=== PATIENT | female | born 1970 | race Caucasian/White ===

== ENCOUNTER 2019-07-07 11:17 | Day surgery (SDC) | payer OTHER ==
[2019-07-06 17:04] VITALS: BMI 22.2
[2019-07-07] MEDS ORDERED: PROPOFOL 20 ML ONE ×3 (12:47)
[2019-07-07 15:21] VITALS: TEMP 97.5
[2019-07-07 15:42] VITALS: BP 108/62; PULSE 71
== END 2019-07-07 14:45 | disposition home or self-care (01) ==
LOC: FASU-ENDO 11:17
PROVIDERS: ATTEND Internal Medicine Gastroenterology
PROC: 0DJD8ZZ Inspection of Lower Intestinal Tract, Via Natural or Artificial Opening Endoscopic (ICD-10-PCS; principal; 2019-07-07 12:57)
DX: Z12.11 Encounter for screening for malignant neoplasm of colon (principal); K64.2 Third degree hemorrhoids
CPT/HCPCS: 84703